=== PATIENT | female | born 1995 | race Caucasian/White ===

== ENCOUNTER 2023-07-05 17:19 | Emergency (ER) | payer OTHER ==
[2023-07-05] MEDS ORDERED: Benzonatate 100 MG CAP ONE (18:27)
[2023-07-05] MEDS ORDERED: Ipratropium/Albuterol 3 ML NEB ONE (18:28)
[2023-07-05] MEDS ORDERED: predniSONE 20 MG TAB ONE (19:00)
== END 2023-07-05 19:05 | disposition home or self-care (01) ==
LOC: MADERS 17:19
DX: J06.9 Acute upper respiratory infection, unspecified (principal); J45.909 Unspecified asthma, uncomplicated; K21.9 Gastro-esophageal reflux disease without esophagitis
CPT/HCPCS: 71046; 94640; J7512; J7620

== ENCOUNTER 2024-06-07 08:00 | Emergency (ER) | payer OTHER, SELFPAY ==
[2024-06-07] MEDS ORDERED: Ibuprofen 600 MG TAB ONE (08:43)
[2024-06-07] MEDS ORDERED: Acetaminophen 500 MG TAB ONE (08:44)
== END 2024-06-07 09:58 | disposition home or self-care (01) ==
LOC: MADERS 08:00
DX: S00.83XA Contusion of other part of head, initial encounter (principal); H53.8 Other visual disturbances; W50.0XXA Accidental hit or strike by another person, initial encounter; Y93.89 Activity, other specified
CPT/HCPCS: 70450; 70486